=== PATIENT | female | born 1980 | race Caucasian/White ===

== ENCOUNTER 2019-01-21 08:10 | Day surgery (SDC) | payer SELFPAY ==
[~2019-01-21 08:10] MED LIST: Midazolam 1 MG/ML 2 ML SDV ONE; Propofol 200 MG/20 ML SDV ONE; fentaNYL 100 MCG/2 ML SDV ONE
[2019-01-21] MEDS ORDERED: Dextrose 5%-Lactated Ringers 1,000 ML IV SCH (08:30)
[2019-01-21] MEDS ORDERED: Glycopyrrolate 0.2 MG/ML 2 ML SDV IVPUSH ONE (09:15)
[2019-01-21] MEDS ORDERED: Pantoprazole 40 MG Vial IVPUSH ONE (10:56)
--- NOTE | 2019-01-27 08:35 | OR ---
DATE OF PROCEDURE: 01/21/2019 PREOPERATIVE DIAGNOSIS: Epigastric pain with some heartburn and ongoing problems with burping, status post previous Zia fundoplication. POSTOPERATIVE DIAGNOSES: 1. Mild inflammation at esophagogastric junction with loosening of previous Zia fundoplication. 2. Focal erosive antral gastritis. OPERATIVE PROCEDURES: Esophagogastroduodenoscopy with, 1. Biopsy of esophagogastric junction for histologic evaluation. 2. Biopsies of antrum for CLOtest. ANESTHESIA: IV sedation. INDICATION FOR PROCEDURE: The patient presents with recent onset of the above symptoms. Prior to that, her laparoscopic Zia fundoplication was done several years ago and had been satisfactorily controlling her reflux symptoms. She is not presently on any antisecretory medication. The plan is to proceed with upper GI endoscopy with biopsies as indicated. Potential risks including bleeding and perforation were discussed, and the patient wishes to proceed. DETAILS OF PROCEDURE: The patient was taken to the operating room and placed in a left lateral decubitus position. IV sedation was administered, after which the upper GI endoscope was passed orally through the length of the esophagus and into the stomach with retroflexion view of the fundus, and thereafter through the pyloric channel and into the proximal duodenum. Findings included normal proximal esophagus. At the EG junction, the patient had a persistent Zia effect. This appeared to be somewhat looser than one typically sees, but otherwise in the correct position. There was mild inflammation of the esophagogastric junction evident, but without erosions or ulcers. Within the stomach, retroflexion view once again confirmed the adequate location of the fundoplication somewhat looser than usual. Apart from that, within the stomach, there were some patchy tiny erosions in antrum within some field of gastritis. Pyloric channel and duodenum, the junction of third and fourth portions were unremarkable. At this point, biopsies were obtained from the antrum and sent for CLOtest for H. pylori. Biopsies were then obtained from the esophagogastric junction. Minimal bleeding from the biopsy sites was seen and the procedure then concluded. The plan will be to start the patient on Protonix 40 mg daily. She will also be given Protonix IV in the recovery room. Then, if further burping, we will try trazodone 50 mg p.o. t.i.d. After discussion of the situation in the postoperative period, the patient was a little bit hesitant regarding the trazodone, and the plan will be to have the patient continue the Protonix through Sunday, this being Sunday, and if she is still having burping problems at that point, start the trazodone. We will see the patient back in eight days, on 01/29/2019. Watson Hooker MD /[id number]
== END 2019-01-21 12:09 | disposition home or self-care (01) ==
LOC: JP.SDS 08:10 → MERGE 10:30 → JP.SDS 12:09
PROVIDERS: ATTEND Surgery
DX: K29.50 Unspecified chronic gastritis without bleeding (principal); K20.0 Eosinophilic esophagitis; T88.9XXA Complication of surgical and medical care, unspecified, initial encounter; K21.9 Gastro-esophageal reflux disease without esophagitis; F90.9 Attention-deficit hyperactivity disorder, unspecified type; Z98.890 Other specified postprocedural states
CPT/HCPCS: 43239; 81025; 87081; C9113; J2250; J2704; J3010; J3490